=== PATIENT | male | born 1970 | race Caucasian/White ===

== ENCOUNTER 2018-04-29 08:04 | Inpatient (IN) | payer OTHER ==
[~2018-04-29] VITALS: Ht 180.3 cm; Wt 135.6 kg
[2018-04-29 08:10] VITALS: Ht 180.3 cm; Wt 135.6 kg
[2018-04-29 08:43] LABS: PLATELET COUNT 150 x10^3mcL (130-400)
[2018-04-29 08:45] LABS: RED CELL DISTRIBUTION WIDTH 15.7 % (11.5-14.5)
[2018-04-29 08:59] LABS: CALCIUM 9.8 mg/dL (8.5-10.1); CARBON DIOXIDE 26.5 mmol/L (21-32); CREATININE SERUM 2.2 mg/dL (0.7-1.3); POTASSIUM SERUM 3.6 mmol/L (3.5-5.1)
[2018-04-29 09:04] LABS: ALBUMIN 3.5 g/dL (3.4-5.0); BILIRUBIN TOTAL 0.5 mg/dL (0.20-1.00); TOTAL PROTEIN, SERUM 7.6 g/dL (6.4-8.2)
[2018-04-29] MEDS ORDERED: PROZ10 (10:17)
[2018-04-29] MEDS ORDERED: DDAVP0.1 MG (10:17)
[2018-04-29] MEDS ORDERED: ZESTRIL5 MG (10:17)
[2018-04-29] MEDS ORDERED: NOR5 (10:17)
[2018-04-29] MEDS ORDERED: SEROQUEL50 M1 (10:18)
[2018-04-29 11:10] LABS: SEGMENTED NEUTROPHILS 60 % (37-75)
[2018-04-29 11:11] LABS: ATYPICAL LYMPH 0 %; BAND NEUTROPHIL 4 % (0-10); BASOPHIL 0 % (0-2); MONOCYTE 16 % (0-7); PLATELET MORPHOLOGY PLATELETS DECREASED; rbc morphology (normal/abnorm) ABNORMAL (NORMAL)
[2018-04-29 12:11] VITALS: BP 144/90
[2018-04-29 12:57] LABS: MAGNESIUM 2.6 mg/dL (1.8-2.4); PHOSPHOROUS 4.9 mg/dL (2.5-4.9); T3 TOTAL 0.64 ng/mL
[2018-04-29 13:07] LABS: FREE T4 0.19 ng/dL (0.76-1.46)
[2018-04-29 13:09] LABS: FREE THYROXINE INDEX 0.2 ug/dL (1.4-4.5); T4(THYROXINE) 0.8 ug/dL (4.7-13.3)
[2018-04-29 16:25] VITALS: BP 133/78
[2018-04-29 20:58] VITALS: BP 132/69
[2018-04-29 22:14] LABS: microscopic required? NO
[2018-04-29 22:40] LABS: UA SPECIFIC GRAVITY >=1.030 (1.005-1.035); urine erythrocyte NEGATIVE (NEGATIVE)
[2018-04-30 05:28] VITALS: BP 119/72
[2018-04-30 06:30] LABS: PLATELET COUNT 136 x10^3mcL (130-400)
[2018-04-30 06:42] LABS: RED CELL DISTRIBUTION WIDTH 15.4 % (11.5-14.5)
[2018-04-30 07:03] LABS: CALCIUM 8.3 mg/dL (8.5-10.1); CARBON DIOXIDE 24.4 mmol/L (21-32); CREATININE SERUM 1.5 mg/dL (0.7-1.3); POTASSIUM SERUM 3.3 mmol/L (3.5-5.1)
[2018-04-30 07:13] LABS: BILIRUBIN DIRECT 0.12 mg/dL (0.0-0.2); BILIRUBIN TOTAL 0.57 mg/dL (0.20-1.00); TOTAL PROTEIN, SERUM 6.9 g/dL (6.4-8.2)
[2018-04-30 07:28] LABS: ALBUMIN 3.3 g/dL (3.4-5.0)
[2018-04-30 09:10] VITALS: BP 120/71
[2018-04-30 12:03] VITALS: BP 155/84
[2018-04-30 12:13] LABS: BAND NEUTROPHIL 2 % (0-10); BASOPHIL 0 % (0-2); MONOCYTE 6 % (0-7); SEGMENTED NEUTROPHILS 48 % (37-75)
[2018-04-30 12:14] LABS: PLATELET MORPHOLOGY PLATELETS DECREASED; ovalocyte/elliptocyte 1+; rbc morphology (normal/abnorm) ABNORMAL (NORMAL)
[2018-04-30 16:25] VITALS: BP 141/76
[2018-04-30 19:58] VITALS: BP 137/75
[2018-05-01 05:28] VITALS: BP 125/62
[2018-05-01 07:17] LABS: PLATELET COUNT 143 x10^3mcL (130-400)
[2018-05-01 07:36] LABS: ALBUMIN 3.6 g/dL (3.4-5.0); BILIRUBIN DIRECT 0.18 mg/dL (0.0-0.2); BILIRUBIN TOTAL 0.9 mg/dL (0.20-1.00); TOTAL PROTEIN, SERUM 7.9 g/dL (6.4-8.2)
[2018-05-01 07:38] LABS: CALCIUM 8.8 mg/dL (8.5-10.1); CARBON DIOXIDE 25.7 mmol/L (21-32); CHLORIDE SERUM 99 mmol/L (98-107); CREATININE SERUM 1.3 mg/dL (0.7-1.3); GFR1 > 60 mL/min; GLUCOSE SERUM 141 mg/dL (74-106); SODIUM SERUM 135 mmol/L (136-145)
[2018-05-01 08:38] VITALS: BP 110/65
[2018-05-01 11:59] LABS: BAND NEUTROPHIL 2 % (0-10); BASOPHIL 1 % (0-2); MONOCYTE 8 % (0-7)
[2018-05-01 12:00] LABS: SEGMENTED NEUTROPHILS 56 % (37-75)
[2018-05-01 12:04] LABS: PLATELET MORPHOLOGY LARGE PLATELET SEEN; ovalocyte/elliptocyte 1+; rbc morphology (normal/abnorm) ABNORMAL (NORMAL)
[2018-05-01 17:22] VITALS: BP 121/72
[2018-05-01 21:17] VITALS: BP 128/62
[2018-05-02 04:35] VITALS: BP 110/56
[2018-05-02 06:06] LABS: CALCIUM 8.7 mg/dL (8.5-10.1); CARBON DIOXIDE 25.9 mmol/L (21-32); CREATININE SERUM 1.5 mg/dL (0.7-1.3); POTASSIUM SERUM 3.2 mmol/L (3.5-5.1)
[2018-05-02 07:20] LABS: PLATELET COUNT 125 x10^3mcL (130-400)
[2018-05-02 09:48] VITALS: BP 109/62
[2018-05-02 10:24] LABS: BAND NEUTROPHIL 2 % (0-10); BASOPHIL 0 % (0-2); MONOCYTE 8 % (0-7); SEGMENTED NEUTROPHILS 54 % (37-75)
[2018-05-02 10:26] LABS: rbc morphology (normal/abnorm) ABNORMAL (NORMAL)
[2018-05-02 10:27] LABS: ovalocyte/elliptocyte 1+
[2018-05-02 17:54] VITALS: BP 118/65
[2018-05-02 21:34] VITALS: BP 127/60
[2018-05-03 03:36] VITALS: BP 127/67
[2018-05-03 06:03] LABS: PLATELET COUNT 125 x10^3mcL (130-400); RED CELL DISTRIBUTION WIDTH 14.9 % (11.5-14.5)
[2018-05-03 07:35] LABS: BAND NEUTROPHIL 3 % (0-10); BASOPHIL 0 % (0-2); MONOCYTE 8 % (0-7); SEGMENTED NEUTROPHILS 50 % (37-75); rbc morphology (normal/abnorm) ABNORMAL (NORMAL)
[2018-05-03 07:35] LABS: CALCIUM 8.5 mg/dL (8.5-10.1); CARBON DIOXIDE 21.1 mmol/L (21-32); CHLORIDE SERUM 100 mmol/L (98-107); CREATININE SERUM 1.3 mg/dL (0.7-1.3); GFR1 > 60 mL/min; GLUCOSE SERUM 167 mg/dL (74-106); POTASSIUM SERUM 3.4 mmol/L (3.5-5.1); SODIUM SERUM 135 mmol/L (136-145)
[2018-05-03 07:36] LABS: ovalocyte/elliptocyte 1+
[2018-05-03 08:25] VITALS: BP 128/75
[2018-05-03 18:24] VITALS: BP 115/73
[2018-05-03 22:10] VITALS: BP 115/58
[2018-05-04 05:31] VITALS: BP 105/44
[2018-05-04 06:43] LABS: PLATELET COUNT 139 x10^3mcL (130-400)
[2018-05-04 07:20] LABS: CALCIUM 8.6 mg/dL (8.5-10.1); CARBON DIOXIDE 27.6 mmol/L (21-32); CHLORIDE SERUM 103 mmol/L (98-107); CREATININE SERUM 1.3 mg/dL (0.7-1.3); GFR1 > 60 mL/min; GLUCOSE SERUM 148 mg/dL (74-106); POTASSIUM SERUM 3.9 mmol/L (3.5-5.1); SODIUM SERUM 137 mmol/L (136-145)
[2018-05-04 07:39] LABS: RED CELL DISTRIBUTION WIDTH 14.6 % (11.5-14.5)
[2018-05-04 08:14] VITALS: BP 136/77
[2018-05-04] MEDS ORDERED: SYN5 PO (12:20)
[2018-05-04] MEDS ORDERED: METFORMIN HCL500 MG PO (12:20)
[2018-05-04] MEDS ORDERED: LEVOFLOXACIN500 M1 PO (12:21)
[2018-05-04 13:25] VITALS: BP 136/77
[2018-05-04 13:54] LABS: ATYPICAL LYMPH 14 %; BAND NEUTROPHIL 0 % (0-10); BASOPHIL 0 % (0-2); MONOCYTE 30 % (0-7); SEGMENTED NEUTROPHILS 34 % (37-75); rbc morphology (normal/abnorm) ABNORMAL (NORMAL)
[2018-05-04 17:23] VITALS: BP 115/79; BP 116/77
[2018-05-04 20:27] VITALS: BP 112/98
[2018-05-05 04:27] VITALS: BP 126/62
[2018-05-05 07:53] VITALS: BP 121/76
[2018-05-05 10:59] LABS: CALCIUM 9.2 mg/dL (8.5-10.1); CARBON DIOXIDE 28.3 mmol/L (21-32); CREATININE SERUM 1.4 mg/dL (0.7-1.3); POTASSIUM SERUM 3.7 mmol/L (3.5-5.1)
[2018-05-05 11:48] LABS: PLATELET COUNT 150 x10^3mcL (130-400)
[2018-05-05 11:59] LABS: RED CELL DISTRIBUTION WIDTH 15.2 % (11.5-14.5)
[2018-05-05 12:31] LABS: SEGMENTED NEUTROPHILS 52 % (37-75)
[2018-05-05 12:32] LABS: ATYPICAL LYMPH 2 %; BAND NEUTROPHIL 0 % (0-10); BASOPHIL 0 % (0-2); BLAST 0 % (0); METAMYELOCTE 0 % (0-2); MONOCYTE 28 % (0-7); MYELOCYTE 0 % (0-2); PROMYELOCYTE 0 % (0-0); rbc morphology (normal/abnorm) ABNORMAL (NORMAL)
[2018-05-05 12:35] LABS: PLATELET MORPHOLOGY PLATELETS DECREASED
[2018-05-05] MEDS ORDERED: AUGMENTIN 875-1 EACH PO (14:05)
[2018-05-05 16:29] VITALS: BP 119/70
[2018-05-05 20:56] VITALS: BP 121/67
[2018-05-06 05:30] VITALS: BP 109/72
[2018-05-06 08:45] VITALS: BP 106/66
[2018-05-06 14:55] LABS: CALCIUM 8.8 mg/dL (8.5-10.1); CARBON DIOXIDE 28.9 mmol/L (21-32); CHLORIDE SERUM 100 mmol/L (98-107); CREATININE SERUM 1.3 mg/dL (0.7-1.3); GFR1 > 60 mL/min; GLUCOSE SERUM 204 mg/dL (74-106); POTASSIUM SERUM 3.4 mmol/L (3.5-5.1); SODIUM SERUM 135 mmol/L (136-145)
[2018-05-06 17:05] VITALS: BP 105/76
[2018-05-06 18:13] VITALS: BP 105/76
[2018-05-06 19:39] VITALS: BP 121/67
== END 2018-05-06 19:44 | DRG 643 ==
LOC: ED 08:04 → MU 10:59 → DU 10:59 → MU 05-03 11:55
PROVIDERS: Family Medicine; Internal Medicine; Specialist
DX: E23.2 Diabetes insipidus (principal); N17.0 Acute kidney failure with tubular necrosis; M62.82 Rhabdomyolysis; F33.9 Major depressive disorder, recurrent, unspecified; R45.851 Suicidal ideations; Z68.41 Body mass index [BMI] 40.0-44.9, adult; E23.0 Hypopituitarism; E86.0 Dehydration; I95.9 Hypotension, unspecified; E78.5 Hyperlipidemia, unspecified; H54.8 Legal blindness, as defined in USA; Z91.5 Personal history of self-harm
CPT/HCPCS: 82962; 83880; 84439; 87046; 87046-59; 90658; J1644; J1815; J2543; J2597; J7030; Q0092